=== PATIENT | female | born 1975 | race Caucasian/White ===

== ENCOUNTER → 2016-07-21 | Outpatient (REF) | payer OTHER ==
[2016-07-24 08:08] LABS: BENZODIAZEPINES, URINE SCREEN Negative ng/mL (Cutoff=200); METHADONE, URINE SCREEN Negative ng/mL (Cutoff=300); pH, URINE 6.5 (4.5-8.9)
== END ==
LOC: M SFHCPLAZ 13:38
PROVIDERS: ATTEND Family Medicine
DX: F90.9 Attention-deficit hyperactivity disorder, unspecified type (principal)

== ENCOUNTER 2017-05-15 16:49 | Emergency (ER) | payer OTHER ==
[~2017-05-15] VITALS: Ht 160 cm; Wt 62.7 kg
[2017-05-15] MEDS ORDERED: ASPIRIN 81 MG CHEW TABLET PO ONE (17:15)
[2017-05-15] MEDS ORDERED: ONDANSETRON 4MG/2ML VIAL (J2405) IV ONE (17:15)
[2017-05-15] MEDS ORDERED: MORPHINE 2 MG/ML 1ML SYRINGE IV PRN (17:15)
[2017-05-15] MEDS ORDERED: NS 500 ML IV ONE (17:15)
[2017-05-15] MEDS ORDERED: ZYRT10CA PO (17:33)
[2017-05-15] MEDS ORDERED: CONC54TA4 PO (17:33)
[2017-05-15] MEDS ORDERED: CBD OIL PO (17:33)
[2017-05-15 17:46] LABS: BASO % 0.5 % (0.0-1.0); EOS # 0.1 10^3/uL (0.0-0.50); EOS % 0.7 % (0.0-3.0); IMMATURE GRANULOCYTE % 0.2 % (0-0); LYMPH % 24.6 % (24.0-44.0); MEAN CORPUSCULAR HEMOGLOBIN 28.2 pg (27.0-33.0); MEAN CORPUSCULAR HGB CONC 33.7 g/dl (32.0-36.5); MEAN CORPUSCULAR VOLUME 83.9 fl (80.0-96.0); MONO # 0.4 10^3/uL (0.0-0.8); MONO % 4.4 % (0.0-5.0); NEUTROPHILS # 5.7 10^3/uL (1.8-7.7); NEUTROPHILS % 69.6 % (36.0-66.0); PLATELET COUNT, AUTOMATED 287 10^3/uL (150-450); RED CELL DISTRIBUTION WIDTH 13.2 % (11.5-14.5); WHITE BLOOD COUNT 8.2 10^3/uL (4.0-10.0)
[2017-05-15 17:54] LABS: ALBUMIN 3.9 GM/DL (3.2-5.2); ALBUMIN/GLOBULIN RATIO 1.15 (1.00-1.93); ALKALINE PHOSPHATASE 63 U/L (45-117); ALT/SGPT 17 U/L (12-78); ANION GAP 8 MEQ/L (8-16); AST/SGOT 13 U/L (7-37); BILIRUBIN,DIRECT < 0.1 MG/DL (0.0-0.2); BILIRUBIN,TOTAL 0.3 MG/DL (0.2-1.0); BLOOD UREA NITROGEN 12 MG/DL (7-18); CARBON DIOXIDE LEVEL 27 MEQ/L (21-32); CHLORIDE LEVEL 104 MEQ/L (98-107); CREATININE FOR GFR 0.69 MG/DL (0.55-1.02); FREE T4 0.95 NG/DL (0.76-1.46); GLOMERULAR FILTRATION RATE > 60.0 (>58); GLUCOSE, FASTING 97 MG/DL (70-105); POTASSIUM SERUM 3.6 MEQ/L (3.5-5.1); SODIUM LEVEL 139 MEQ/L (136-145); TOTAL PROTEIN 7.3 GM/DL (6.4-8.2)
[2017-05-15] MEDS ORDERED: ISOVUE-370 76% 100ML VIAL (Q9967) As Ordered ONE (17:55)
[2017-05-15 17:59] LABS: INR 1.03
[2017-05-15] MEDS ORDERED: MORPHINE 4 MG/ML 1ML SYRINGE IV ONE (18:00)
[2017-05-15] MEDS ORDERED: GI COCKTAIL 50ML BTL(HYOSCYAMINE/MAALOX/LIDOCAINE VISCOUS)(1:3:1) PO ONE (18:45)
--- NOTE | 2017-05-15 19:10 | REPUSA ---
CLINICAL HISTORY: CP, exclude PE. TECHNIQUE: Multiple incremental axial, coronal and oblique images are obtained from the thoracic inle t to the upper abdomen. Intravenous contrast material was administered as per pulmonary embolism prot ocol. COMMENTS: There is excellent opacification of pulmonary arterial system without evidence for pulmonary embolism . Aorta is of normal caliber without evidence for dissection or aneurysm. There is no evidence of pleural or parenchymal mass. There are no pleural effusions. There is no evid ence of hilar or mediastinal lymphadenopathy. The heart and great vessels are within normal limits. Images of the upper abdomen demonstrate no evidence of adrenal mass. The bony structures are free of lytic or blastic lesions. IMPRESSION: No evidence for pulmonary embolism. Thank you for your kind referral of this patient.
--- NOTE | 2017-05-15 19:47 | ECGEPIP ---
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
--- NOTE | 2017-05-15 19:49 | ECGEPIP ---
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
[2017-05-15 21:59] VITALS: BP 112/66
--- NOTE | 2017-05-16 01:40 | REP ---
Clinical: Chest pain . Comparison: None . Findings: The mediastinum and cardiac silhouette are stable and within normal limits for portable technique. The lung morales are clear without acute consolidation, effusion, or pneumothorax. Skeletal structures are intact. Impression: No acute cardiopulmonary process appreciated. Signed by Faisal Ji MD 05/15/2017 10:32 P
--- NOTE | 2017-05-17 08:26 | ECGEPIP ---
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
== END 2017-05-15 22:39 | disposition left against medical advice (07) ==
LOC: M ED 16:49
DX: R07.89 Other chest pain (principal); R00.2 Palpitations; R42 Dizziness and giddiness; R06.02 Shortness of breath; F90.9 Attention-deficit hyperactivity disorder, unspecified type; M79.7 Fibromyalgia; M32.9 Systemic lupus erythematosus, unspecified; Z82.49 Family history of ischemic heart disease and other diseases of the circulatory system; Z79.899 Other long term (current) drug therapy; Z88.0 Allergy status to penicillin; Z88.8 Allergy status to other drugs, medicaments and biological substances
CPT/HCPCS: 36415; 71010; 71275; 80048; 80076; 82550; 82553; 84439; 84443; 85025; 85379; 85610; 85730; 93005; 93041; 94760; 96374; 96375; 96376; 99285; J2405; Q9967

== ENCOUNTER → 2018-03-14 | Outpatient (CLI) | payer OTHER | LOC: M LRY 18:31 | DX: R10.9 Unspecified abdominal pain (principal) | CPT/HCPCS: 74021; 81002 ==

== ENCOUNTER 2018-05-15 14:09 | Emergency (ER) | payer OTHER ==
[~2018-05-15] VITALS: Ht 160 cm; Wt 63.6 kg
[~2018-05-15 14:09] MED LIST: CBD OIL PO; CONC54TA4 PO; ZYRT10CA PO
[2018-05-15 15:16] LABS: BASO # 0.1 10^3/uL (0.0-0.2); BASO % 0.7 % (0.0-1.0); EOS # 0.1 10^3/uL (0.0-0.50); EOS % 0.8 % (0.0-3.0); HEMATOCRIT 41.3 % (36.0-47.0); HEMOGLOBIN 14.1 g/dl (12.0-15.5); LYMPH # 1.7 10^3/uL (1.5-4.5); LYMPH % 23.5 % (24.0-44.0); MEAN CORPUSCULAR HEMOGLOBIN 28.7 pg (27.0-33.0); MEAN CORPUSCULAR HGB CONC 34.1 g/dl (32.0-36.5); MEAN CORPUSCULAR VOLUME 83.9 fl (80.0-96.0); MONO # 0.4 10^3/uL (0.0-0.8); MONO % 5.6 % (0.0-5.0); NEUTROPHILS # 4.9 10^3/uL (1.8-7.7); NEUTROPHILS % 69.1 % (36.0-66.0); PLATELET COUNT, AUTOMATED 293 10^3/uL (150-450); RED BLOOD COUNT 4.92 10^6/uL (4.00-5.40); WHITE BLOOD COUNT 7.1 10^3/uL (4.0-10.0)
[2018-05-15 15:40] LABS: HCG, SERUM QUALITATIVE NEGATIVE (NEGATIVE)
[2018-05-15 15:48] LABS: ALBUMIN 4.1 GM/DL (3.2-5.2); ALT/SGPT 22 U/L (12-78); BILIRUBIN,DIRECT 0.1 MG/DL (0.0-0.2); BILIRUBIN,TOTAL 0.3 MG/DL (0.2-1.0); BLOOD UREA NITROGEN 10 MG/DL (7-18); C REACTIVE PROTEIN QUANTITATIV < 0.30 MG/DL (0.00-0.30); CALCIUM LEVEL 8.9 MG/DL (8.5-10.1); CARBON DIOXIDE LEVEL 30 MEQ/L (21-32); CHLORIDE LEVEL 104 MEQ/L (98-107); CK-MB VALUE MASS < 1.0 NG/ML (<3.6); CPK CREATINE PHOSPHOKINASE 106 U/L (26-192); CREATININE FOR GFR 0.81 MG/DL (0.55-1.30); FREE T4 1.07 NG/DL (0.76-1.46); GLOMERULAR FILTRATION RATE > 60.0 (>58); GLUCOSE, FASTING 96 MG/DL (70-100); LIPASE 156 U/L (73-393); MB/CK RELATIVE INDEX 0.94 (< OR =4); POTASSIUM SERUM 3.8 MEQ/L (3.5-5.1); SODIUM LEVEL 140 MEQ/L (136-145); THYROID STIMULATING HORMONE 0.574 uIU/ML (0.358-3.740); TOTAL PROTEIN 7.9 GM/DL (6.4-8.2); TROPONIN I < 0.02 NG/ML (< 0.10)
[2018-05-15] MEDS: NS 1,000 ML IV ONE (15:54)
[2018-05-15] MEDS ORDERED: ISOVUE-370 76% 100ML VIAL (Q9967) As Ordered ONE (15:59)
--- NOTE | 2018-05-15 16:11 | REP ---
Chest one-view HISTORY: Chest pain Comparison: 05/15/2017 The lungs are clear. The heart is normal in size. The pulmonary vasculature is normal in appearance. Impression: No acute disease. Electronically Signed by Nuno Cohen MD 05/15/2018 04:03 P
[2018-05-15 17:05] LABS: ERYTHROCYTE SEDIMENTATION RATE 3 mm/hr (0-20)
[2018-05-15 17:15] VITALS: BP 106/62
--- NOTE | 2018-05-15 17:15 | REP ---
CT pulmonary angiogram: With IV contrast. History: Chest pain shortness of breath. Comparison studies: Para send study May 15, 2017 Contrast dose: 75 mL of Isovue [address] technique: Helical scanning is acquired and overlapping 1.5 mm and contiguous 3 mm axial images are reformatted. In addition, maximum intensity projection and multiplanar re-formation images are generated in sagittal and coronal imaging projections. CT pulmonary angiographic findings: There is good opacification of the pulmonary arterial tree and there is no CT evidence of pulmonary embolism. The thoracic aorta enhances homogeneously. There is no evidence of aneurysm or dissection. No pleural or pericardial effusion is seen. Maximum intensity projection images show no vessel cutoff or filling defect. The lung morales are clear. Bilateral breast augmentation implants are noted. There is a mild complex thoracic spine curvature. No bony destructive lesion is seen. There are two adjacent subcapsular cysts at the anterior superior surface of the spleen. The largest of these measures 2.1 x 1.6 cm. Adjacent to this there is a smaller lesion measuring 1.2 cm in greatest diameter. There is a third subcapsular cyst at the posterior, inferior and lateral aspect of the spleen measuring 0.9 cm. These are visible in retrospect on the prior CT images. These findings are visible on the April 01, 2016 prior study as well. These are felt to be benign splenic cysts. No adrenal lesion is seen. The visualized upper abdominal structures are otherwise unremarkable. Impression: No CT evidence of pulmonary embolus. Small benign splenic cysts, unchanged from April 18, 2016. Bilateral augmentation breast implants. Otherwise no acute disease. Electronically Signed by Cliff Albrecht MD 05/15/2018 08:17 P
[2018-05-15] MEDS: KETOROLAC 30 MG/ML VIAL (J1885) IV ONE (17:26)
--- NOTE | 2018-05-15 19:10 | ECGEPIP ---
Stationary ECG Study 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
== END 2018-05-15 17:35 | disposition home or self-care (01) ==
LOC: M ED 14:09
DX: M32.9 Systemic lupus erythematosus, unspecified (principal); R07.89 Other chest pain; M79.7 Fibromyalgia; F33.9 Major depressive disorder, recurrent, unspecified; E06.3 Autoimmune thyroiditis; Z79.899 Other long term (current) drug therapy; Z88.0 Allergy status to penicillin; Z88.8 Allergy status to other drugs, medicaments and biological substances; F17.210 Nicotine dependence, cigarettes, uncomplicated
CPT/HCPCS: 36415; 71045; 71275; 80048; 80076; 82550; 82553; 83690; 84439; 84443; 84484; 84703; 85025; 85652; 86140; 93005; 93041; 94760; 96361; 96374; 99284; J1885; Q9967